=== PATIENT | male | born 1970 | race Caucasian/White ===

== ENCOUNTER 2018-03-04 11:46 | Outpatient (CLI) | payer OTHER ==
[2013-08-17 13:47] VITALS: BP 106/59
[~2018-03-04 11:46] MED LIST: 0.9 % SODIUM CHLORIDE PF 10 ML VIAL IJ ONE; LIDOCAINE HCL/PF 2% 100 MG/5 ML VIAL IJ ONE; TRIAMCINOLONE ACETONID 40MG/ML VIAL ONE
--- NOTE | 2018-03-05 12:50 | HISTORY AND PHYSICAL REPORT ---
REFERRING PHYSICIAN: Dr. Shivam Doshi Dear Dr. Doshi: HISTORY OF PRESENT ILLNESS: I had the opportunity of seeing Armin Sandra today as an outpatient in clinic with a history of back pain and symptoms radiating down the right leg. He tells me that he has had these symptoms for some time, greater than 5 years. He had an injection in 2008 which he said he got good relief from when he was in [place]. He says he has constant back pain, worse with activity and generally better with alcohol use. He has pain when he walks and twists, symptoms of right hip pain, radiculitis. He denies left-sided pain. He denies incontinence or eugenie neurogenic claudication. He does smoke. He says the symptoms can be as severe as 10 over 10 on a visual analog scale or as little as 2 over 10 on a visual analog scale depending on activity. It is associated with insomnia. He has had a previous injection, exercise, physical therapy, and nonsteroidal antiinflammatories. He takes very little in the way of oral analgesics. PAST MEDICAL HISTORY: 1. History of vision problems. 2. Nose or sinus problems. 3. Depression. 4. Anxiety. 5. Frequent headaches. 6. Alcoholism. 7. GERD. 8. Pancreatitis. PAST SURGICAL HISTORY: 1. Ankle surgery. 2. 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 ALLERGIES: No drug allergies. DAILY MEDICATIONS: 1. Buspirone 10 mg b.i.d. 2. Trazodone 100 mg at bedtime. 3. Citalopram 30 mg daily. 4. Ranitidine daily. 5. Zoloft daily. SOCIAL HISTORY: He is currently at least a 1-to-2 [id number] smoker. He is a daily drinker. He has a reported history of recreational drug use. He has never been . He has no children. He obtained his GED. He is not currently employed. His previous occupation was at a [employer]. He is disabled due to unknown reason. He does have an extensive history of incarceration. FAMILY HISTORY: Mother with pain problems. Siblings with cancer and pain problems. REVIEW OF SYSTEMS: In the last month or so, he reports a weight loss, night sweats, head cold, hoarse voice, cough or cold, vomiting, feeling depressed, and feeling anxious. Pain is worsened with standing, twisting, changes in weather, cold, getting up in the morning or in any position for too long. Pain is improved with lying down and massage. PHYSICAL EXAMINATION: General: This is a thin white male fairly stoic and in no apparent distress. Vital Signs: BP: 120/66, P: 80, R: 19, oxygen saturation is 97% on room air. HEENT: Pupils are equal, round, and reactive to light and accommodation. Extraocular movements intact. No facial droop. Neck: There is full range of motion of the cervical spine. No evidence of adenopathy. Thyroid is nontender, not enlarged. Carotids are without bruits. Chest: Clear to auscultation bilaterally. Normal chest excursion. Heart: Regular rate and rhythm without murmur. Abdomen: Benign. Normoactive bowel sounds. Motor/sensory: Intact in the upper and lower extremities. Moves all extremities freely. Back: There is positive straight leg raise on the right. Pain at right sciatic notch. Mildly positive assisted extension and extension rotation. Extremities: Strength is 5/5 and equal in his lower extremities. Patellar tendon and Achilles tendon are 2+ and equal. There is no evidence of lower extremity weakness or neurogenic claudication. DIAGNOSTIC STUDIES: MRI was reviewed. Patient has multi-level degenerative disease of the lumbar spine, including modic changes at the inferior endplate at L2 and superior L3. He has disc protrusions at T12-L1, L1-L2, L2-L3, L3-L4, and L4-L5. There is no severe stenosis but lateral recess stenosis at L3-L4 and a sequestered right paracentral extruded disc behind the L5 vertebral body of the L4-L5 disc space, which does seem to fit his underlying complaints. ASSESSMENT: Multi-level disc disease. 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 PLAN: Right L5-S1 epidural steroid injection for lumbar radiculitis today. Dr. Doshi, thank you very much for allowing me to take part in the care of this nice gentleman. I will follow him up next month. cc: Dr. Shivam ZHENG
--- NOTE | 2018-03-05 12:56 | LESI WITH FLUORO ---
OPERATIVE PROCEDURE: Right L5-S1 epidural steroid injection with fluoroscopic guidance. DESCRIPTION OF PROCEDURE: The risks and benefits were discussed with the patient including the risk of infection, bleeding, nerve injury, and headache, as well as the risks of steroid exposure causing hyperglycemia, hypertension, osteoporosis, or increased infectious risks. The patient understood these risks and agreed to proceed. Consent was obtained prior to the procedure. The patient was placed in the prone position on the fluoroscopy table with a pillow underneath the abdomen to afford anterior flexion of the lumbar spine. The low back was cleaned and sterile drape was applied. An epidural needle was advanced with normal saline loss of resistance technique and direct fluoroscopic guidance with a right paramedian approach at the L5-S1 level. On obtaining loss of resistance to normal saline, it was verified that there was no aspiration of CSF or blood. Furthermore, the needle tip location was verified with lateral and AP fluoroscopic views. The medication was injected into the epidural space. The stylet was replaced in the needle and the needle was removed from the back. The patient tolerated the procedure well. The back was cleaned and a bandage was applied over the injection site. The patient was monitored for 20 minutes following the procedure. during this time the vital signs remained stable and the patient experienced no adverse sequelae. The patient was discharged in good condition. ASSESSMENT: Lumbar radiculitis. PLAN: Right L5-S1 epidural steroid injection with fluoroscopic guidance today. FOLLOWUP: Return to clinic if problems develop or worsen. cc: Dr. Shivam ZHENG
== END 2018-03-04 11:48 ==
LOC: OUT 11:46
PROVIDERS: ATTEND Anesthesiology Pain Medicine
DX: M51.16 Intervertebral disc disorders with radiculopathy, lumbar region (principal); M51.15 Intervertebral disc disorders with radiculopathy, thoracolumbar region
CPT/HCPCS: J2001; J3301; 62323; 99214